=== PATIENT | male | born 1945 | race Caucasian/White ===

== ENCOUNTER 2016-12-14 09:40 | Observation (INO) | payer MEDICARE, OTHER ==
[2016-12-14] MEDS ORDERED: NITROGLYCERIN OINT 1 INCH/GM PACKET TOPICAL STA (10:06)
[2016-12-14] MEDS ORDERED: ASPIRIN 81 MG CHEW PO STA (10:06)
--- NOTE | 2016-12-14 10:08 | ED ---
General Adult HPI - General Chief complaint: Chest Pain Stated complaint: chest pain Time Seen by Provider: 12/14/16 09:50 Source: patient, RN notes reviewed Mode of arrival: wheelchair Limitations: no limitations - History of Present Illness Initial comments: This is a 71-year-old male with past medical history significant for diabetes he states he comes in today because he was having some chest tightness the last few days. Patient states it has been radiating to his neck. Patient states sometimes it seems worse when he takes a deep breath but not always. Patient states a couple days ago he also had some heaviness in the left arm which has subsided. Patient denies any nausea patient denies any diaphoresis. Patient denies a history of hypertension or high cholesterol. Patient denies any smoking history. Patient denies any family history of heart disease. Patient denies any lightheadedness dizziness or near syncopal episode. Patient denies any palpitations. Patient denies abdominal pain patient denies nausea vomiting diarrhea. - Related Data Home Medications Medication Instructions Recorded Confirmed Aspirin 81 mg PO DAILY 12/14/16 12/14/16 Levothyroxine Sodium [Synthroid] 75 mcg PO DAILY 12/14/16 12/14/16 Lisinopril [Prinivil] 5 mg PO DAILY 12/14/16 12/14/16 Simvastatin [Zocor] 20 mg PO HS 12/14/16 12/14/16 metFORMIN HCL [Glucophage] 500 mg PO BID 12/14/16 12/14/16 Allergies Allergy/AdvReac Type Severity Reaction Status Date / Time No Known Allergies Allergy Verified 12/14/16 10:46 Review of Systems ROS Statement: Those systems with pertinent positive or pertinent negative responses have been documented in the HPI. ROS Other: All systems not noted in ROS Statement are negative. Past Medical History Past Medical History: Coronary Artery Disease (CAD), Diabetes Mellitus, Hyperlipidemia, Hypertension, Thyroid Disorder History of Any Multi-Drug Resistant Organisms: None Reported Past Surgical History: No Surgical Hx Reported Past Psychological History: No Psychological Hx Reported Smoking Status: Former smoker Past Alcohol Use History: None Reported Past Drug Use History: None Reported General Exam - General Exam Comments Initial Comments: GENERAL: Patient is well-developed and well-nourished. Patient is nontoxic and well- hydrated and is in mild distress. ENT: Neck is soft and supple. No significant lymphadenopathy is noted. Oropharynx is clear. Moist mucous membranes. Neck has full range of motion without eliciting any pain. EYES: The sclera were anicteric and conjunctiva were pink and moist. Extraocular movements were intact and pupils were equal round and reactive to light. Eyelids were unremarkable. PULMONARY: Unlabored respirations. Good breath sounds bilaterally. No audible rales rhonchi or wheezing was noted. CARDIOVASCULAR: There is a regular rate and rhythm without any murmurs gallops or rubs. ABDOMEN: Soft and nontender with normal bowel sounds. No palpable organomegaly was noted. There is no palpable pulsatile mass. SKIN: Skin is clear with no lesions or rashes and otherwise unremarkable. NEUROLOGIC: Patient is alert and oriented x3. Cranial nerves II through XII are grossly intact. Motor and sensory are also intact. Normal speech, volume and content. Symmetrical smile. MUSCULOSKELETAL: Normal extremities with adequate strength and full range of motion. No lower extremity swelling or edema. No calf tenderness. LYMPHATICS: No significant lymphadenopathy is noted PSYCHIATRIC: Normal psychiatric evaluation. Normal interpersonal interactions appears functionally intact in deals appropriately with others. No signs of depression. No signs of anxiety. Limitations: no limitations Course Vital Signs 12/14/16 12/14/16 12/14/16 09:45 10:20 10:52 Temperature 98.2 F 98.7 F Pulse Rate 78 73 Pulse Rate [ 85 Right Radial] Respiratory 20 18 Rate Blood Pressure 139/67 104/57 O2 Sat by Pulse 98 95 Oximetry Medical Decision Making - Medical Decision Making EKG shows normal sinus rhythm at 77 bpm MD interval is 160 QRS is 120 QT interval 396 QTC is 448. Patient's EKG shows no ST segment elevation or depression or T wave normalities are noted. Patient does show a right bundle branch block. Patient is CAT scan showed no acute normalities. Patient attempted ambulation with 2 nurses and was unsuccessful. Patient could not walk more 3 feet without feeling so she was going to fall over a passout. I spoke with the depression agreed to admit the patient I wrote admitting orders. Chest x-ray shows no acute normalities - Lab Data Result diagrams: 12/14/16 10:16 12/14/16 10:16 Lab Results 12/14/16 12/14/16 12/14/16 Range/Units 10:16 10:16 10:16 WBC 12.9 H (3.8-10.6) k/uL RBC 4.50 (4.30-5.90) m/uL Hgb 14.2 (13.0-17.5) gm/dL Hct 42.3 (39.0-53.0) % MCV 94.1 (80.0-100.0) fL MCH 31.6 (25.0-35.0) pg MCHC 33.6 (31.0-37.0) g/dL RDW 13.6 (11.5-15.5) % Plt Count 236 (150-450) k/uL Neutrophils % 75 % Lymphocytes % 13 % Monocytes % 6 % Eosinophils % 4 % Basophils % 1 % Neutrophils # 9.6 H (1.3-7.7) k/uL Lymphocytes # 1.7 (1.0-4.8) k/uL Monocytes # 0.8 (0-1.0) k/uL Eosinophils # 0.5 (0-0.7) k/uL Basophils # 0.1 (0-0.2) k/uL PT (9.0-12.0) sec INR (<1.2) APTT (22.0-30.0) sec Sodium 138 (137-145) mmol/L Potassium 4.1 (3.5-5.1) mmol/L Chloride 100 (98-107) mmol/L Carbon Dioxide 27 (22-30) mmol/L Anion Gap 11 mmol/L BUN 9 (9-20) mg/dL Creatinine 0.87 (0.66-1.25) mg/dL Est GFR (MDRD) Af Amer >60 (>60 ml/min/1.73 sqM) Est GFR (MDRD) Non-Af >60 (>60 ml/min/1.73 sqM) Glucose 125 H (74-99) mg/dL Calcium 9.1 (8.4-10.2) mg/dL Magnesium 1.8 (1.6-2.3) mg/dL Total Bilirubin 1.4 H (0.2-1.3) mg/dL AST 29 (17-59) U/L ALT 53 (21-72) U/L Alkaline Phosphatase 50 (38-126) U/L Total Creatine Kinase 99 (55-170) U/L CK-MB (CK-2) 0.6 (0.0-2.4) ng/mL CK-MB (CK-2) Rel Index 0.6 Troponin I <0.012 (0.000-0.034) ng/mL Total Protein 6.8 (6.3-8.2) g/dL Albumin 4.0 (3.5-5.0) g/dL 12/14/16 Range/Units 10:16 WBC (3.8-10.6) k/uL RBC (4.30-5.90) m/uL Hgb (13.0-17.5) gm/dL Hct (39.0-53.0) % MCV (80.0-100.0) fL MCH (25.0-35.0) pg MCHC (31.0-37.0) g/dL RDW (11.5-15.5) % Plt Count (150-450) k/uL Neutrophils % % Lymphocytes % % Monocytes % % Eosinophils % % Basophils % % Neutrophils # (1.3-7.7) k/uL Lymphocytes # (1.0-4.8) k/uL Monocytes # (0-1.0) k/uL Eosinophils # (0-0.7) k/uL Basophils # (0-0.2) k/uL PT 11.0 (9.0-12.0) sec INR 1.1 (<1.2) APTT 24.5 (22.0-30.0) sec Sodium (137-145) mmol/L Potassium (3.5-5.1) mmol/L Chloride (98-107) mmol/L Carbon Dioxide (22-30) mmol/L Anion Gap mmol/L BUN (9-20) mg/dL Creatinine (0.66-1.25) mg/dL Est GFR (MDRD) Af Amer (>60 ml/min/1.73 sqM) Est GFR (MDRD) Non-Af (>60 ml/min/1.73 sqM) Glucose (74-99) mg/dL Calcium (8.4-10.2) mg/dL Magnesium (1.6-2.3) mg/dL Total Bilirubin (0.2-1.3) mg/dL AST (17-59) U/L ALT (21-72) U/L Alkaline Phosphatase (38-126) U/L Total Creatine Kinase (55-170) U/L CK-MB (CK-2) (0.0-2.4) ng/mL CK-MB (CK-2) Rel Index Troponin I (0.000-0.034) ng/mL Total Protein (6.3-8.2) g/dL Albumin (3.5-5.0) g/dL Disposition Clinical Impression: Unstable angina pectoris Disposition: ADMITTED IP TO THIS HOSP Referrals: Cinthia Estrada DO [Primary Care Provider] - 1-2 days Time of Disposition: 11:32
--- NOTE | 2016-12-14 10:32 | XR ---
EXAMINATION TYPE: XR chest 2V DATE OF EXAM: 12/14/2016 COMPARISON: NONE HISTORY: Chest pain. TECHNIQUE: Frontal and lateral views of the chest are obtained. FINDINGS: There is no focal air space opacity, pleural effusion, or pneumothorax seen. The cardiac silhouette size is within normal limits. The osseous structures are intact. Minimal degenerative ch anges are seen of the thoracic spine. IMPRESSION: No acute cardiopulmonary process.
[2016-12-14 10:34] LABS: Basophils # (A) 0.1 k/uL (0-0.2); Basophils % (A) 1 %; CH 32.1; CHCM 34.3; Eosinophils # (A) 0.5 k/uL (0-0.7); Eosinophils % (A) 4 %; HCT 42.3 % (39.0-53.0); HGB 14.2 gm/dL (13.0-17.5); Luc # (Auto) 0.21; Luc % (Auto) 2; Lymphocytes # (A) 1.7 k/uL (1.0-4.8); Lymphocytes % (A) 13 %; MCH 31.6 pg (25.0-35.0); MCHC 33.6 g/dL (31.0-37.0); MCV 94.1 fL (80.0-100.0); Mean Platelet Volume 7.7; Monocytes # (A) 0.8 k/uL (0-1.0); Monocytes % (A) 6 %; Neutrophils # (A) 9.6 k/uL (1.3-7.7); Neutrophils % (A) 75 %; RDW 13.6 % (11.5-15.5); WBC 12.9 k/uL (3.8-10.6); WBC (Perox) 12.87
[2016-12-14 10:47] LABS: INR 1.1 (<1.2); Partial Thromboplastin Time 24.5 sec (22.0-30.0)
[2016-12-14 10:48] LABS: ALT 53 U/L (21-72); AST 29 U/L (17-59); Alkaline Phosphatase 50 U/L (38-126); Anion Gap 11 mmol/L; Blood Urea Nitrogen 9 mg/dL (9-20); Calcium 9.1 mg/dL (8.4-10.2); Carbon Dioxide 27 mmol/L (22-30); Chloride 100 mmol/L (98-107); Glucose 125 mg/dL (74-99); Magnesium 1.8 mg/dL (1.6-2.3); Non-African American GFR(MDRD) >60 (>60 ml/min/1.73 sqM); Potassium 4.1 mmol/L (3.5-5.1); Sodium 138 mmol/L (137-145); Total Bilirubin 1.4 mg/dL (0.2-1.3); Total Protein 6.8 g/dL (6.3-8.2)
[2016-12-14 11:02] LABS: Creatine Kinase 99 U/L (55-170)
[2016-12-14 11:14] LABS: Creatine Kinase MB 0.6 ng/mL (0.0-2.4); Troponin I <0.012 ng/mL (0.000-0.034)
[2016-12-14] MEDS ORDERED: SODIUM CHLORIDE 0.9% 1,000 ML IV ONE (11:24)
[2016-12-14] MEDS ORDERED: HEPARIN SODIUM,PORCINE 5,000 UNIT/ML 1 ML VIAL IV ONE (11:32)
[2016-12-14] MEDS ORDERED: NITROGLYCERIN SL TABS 0.4 MG TAB SUBLINGUAL PRN (11:33)
[2016-12-14] MEDS: HEPARIN SODIUM,PORCINE/D5W PMX 25,000 UNIT in DEXTROSE/WATER 1 500ML.BAG IV SCH (11:49)
[2016-12-14 14:36] VITALS: BMI 30.8
[2016-12-14] MEDS ORDERED: methylPREDNISolone SOD SUCCI 125 MG/2 ML VIAL IV STA (15:02)
--- NOTE | 2016-12-14 16:09 | P.HPIM ---
History of Present Illness H&P Date: 12/14/16 This is a 71-year-old gentleman with history of diabetes comes in to the hospital with complaints of right-sided chest pain, intermittent in nature for the last 3-4 days. States that the deep breathing makes it worse does not recall if the nitroglycerin has helped his pain in the emergency room EKG in the ER shows a right axis deviation with a right bundle branch pattern no ST elevation is noted Initial troponin is negative Patient does not have a history of smoking no family history of cardiac disease is reported Patient is able to exercise walk about 2-1/2 miles without any progressive worsening of dyspnea or chest pain At the time of my evaluation states that he is able to reproduce the pain with deep breathing. Review of Systems All systems: negative (Noted in HPI) Past Medical History Past Medical History: Coronary Artery Disease (CAD), Diabetes Mellitus, Hyperlipidemia, Hypertension, Thyroid Disorder Additional Past Medical History / Comment(s): tendonitis in the L thumb to wrist , broke R wrist History of Any Multi-Drug Resistant Organisms: None Reported Past Surgical History: No Surgical Hx Reported Past Anesthesia/Blood Transfusion Reactions: No Reported Reaction Past Psychological History: No Psychological Hx Reported Smoking Status: Former smoker Past Alcohol Use History: None Reported Past Drug Use History: None Reported - Past Family History Mother Family Medical History: Diabetes Mellitus Additional Family Medical History / Comment(s): of CHF- thickening of the blood Father Family Medical History: Renal Disease Additional Family Medical History / Comment(s): of uremias poisoning, was a heavy drinker Medications and Allergies Home Medications Medication Instructions Recorded Confirmed Type Aspirin 81 mg PO DAILY 12/14/16 12/14/16 History Levothyroxine Sodium [Synthroid] 75 mcg PO DAILY 12/14/16 12/14/16 History Lisinopril [Prinivil] 5 mg PO DAILY 12/14/16 12/14/16 History Simvastatin [Zocor] 20 mg PO HS 12/14/16 12/14/16 History metFORMIN HCL [Glucophage] 500 mg PO BID 12/14/16 12/14/16 History Allergies Allergy/AdvReac Type Severity Reaction Status Date / Time No Known Allergies Allergy Verified 12/14/16 10:46 Physical Exam Vitals: Vital Signs Temp Pulse Pulse Pulse Resp BP BP 12/14/16 13:22 98.3 F 73 16 142/71 12/14/16 11:51 98.2 F 78 18 116/57 12/14/16 10:52 98.7 F 73 18 104/57 12/14/16 10:20 85 12/14/16 09:45 98.2 F 78 20 139/67 Pulse Ox 12/14/16 13:22 93 L 12/14/16 11:51 96 12/14/16 10:52 95 12/14/16 10:20 12/14/16 09:45 98 Intake and Output 12/14/16 12/14/16 12/14/16 06:59 14:59 22:59 Other: Weight 97.522 kg Patient Weight 12/15/16 06:59 Weight 97.522 kg Physical exam Gen. appearance oriented 3 in no distress Neck is supple no JVD Lungs good air entry clear to auscultation no rhonchi or wheezing Heart S1-S2 heard regular rate and rhythm no murmurs appreciated Abdomen is soft nontender no organomegaly bowel sounds are intact Neurologically cranial nerves II-12 grossly intact no focal motor or sensory deficits noted Skin no abnormalities appreciated Results CBC & Chem 7: 12/14/16 10:16 12/14/16 10:16 Labs: Abnormal Lab Results - Last 24 Hours (Table) 12/14/16 12/14/16 Range/Units 10:16 10:16 WBC 12.9 H (3.8-10.6) k/uL Neutrophils # 9.6 H (1.3-7.7) k/uL Glucose 125 H (74-99) mg/dL Total Bilirubin 1.4 H (0.2-1.3) mg/dL Thrombosis Risk Factor Assmnt - Choose All That Apply Each Factor Represents 1 point: Obesity (BMI >25) Each Risk Factor Represents 2 Points: Age 61-74 years Thrombosis Risk Factor Assessment Total Risk Factor Score: 3 Thrombosis Risk Factor Assessment Level: Moderate Risk Assessment and Plan Plan: Atypical chest pain appears to be pleuritic #2 diabetes mellitus type 2 #3 dyslipidemia Plan We'll give the patient 1 dose of Solu-Medrol Glucose levels be controlled which short acting insulin We'll obtain HbA1c Would likely benefit from a stress test with the EKG changes and risk factors including diabetes mellitus and age We'll have cardiology evaluate the patient
[2016-12-14 17:24] LABS: Glucose,Whole Blood 104 mg/dL (75-99)
[2016-12-14 17:44] LABS: Creatine Kinase 85 U/L (55-170)
[2016-12-14] MEDS: INSULIN LISPRO (humaLOG) 300 UNIT/3 ML VIAL SQ SCH ×2 (17:56→20:41)
[2016-12-14 17:57] LABS: Creatine Kinase MB 0.5 ng/mL (0.0-2.4); Troponin I <0.012 ng/mL (0.000-0.034)
[2016-12-14] MEDS ORDERED: HEPARIN SODIUM,PORCINE 5,000 UNIT/ML 1 ML VIAL IV PRN (19:12)
[2016-12-14 19:51] LABS: Hemoglobin A1C 7.1 % (4.2-6.1)
[2016-12-14] MEDS: NITROGLYCERIN OINT 1 INCH/GM PACKET TOPICAL SCH ×2 (19:54→20:36)
[2016-12-14 20:34] LABS: Glucose,Whole Blood 231 mg/dL (75-99)
[2016-12-14] MEDS ORDERED: ATORVASTATIN 10 MG TAB PO SCH (21:00)
[2016-12-14 22:57] LABS: Creatine Kinase 75 U/L (55-170)
[2016-12-14 23:06] LABS: Glucose,Whole Blood 242 mg/dL (75-99)
[2016-12-14 23:10] LABS: Creatine Kinase MB 0.4 ng/mL (0.0-2.4); Troponin I <0.012 ng/mL (0.000-0.034)
[2016-12-15 03:11] LABS: Cholesterol 106 mg/dL (<200); HDL Cholesterol 50 mg/dL (40-60)
[2016-12-15] MEDS: HEPARIN SODIUM,PORCINE/D5W PMX 25,000 UNIT in DEXTROSE/WATER 1 500ML.BAG IV SCH (05:53)
[2016-12-15] MEDS: NITROGLYCERIN OINT 1 INCH/GM PACKET TOPICAL SCH ×3 (05:53→17:32)
[2016-12-15] MEDS ORDERED: LEVOTHYROXINE 75 MCG TAB PO SCH (06:30)
[2016-12-15 07:07] LABS: Glucose,Whole Blood 216 mg/dL (75-99)
[2016-12-15 08:42] VITALS: RESP 18
[2016-12-15] MEDS ORDERED: LISINOPRIL 5 MG TAB PO SCH (09:00)
[2016-12-15] MEDS ORDERED: ASPIRIN 325 MG TAB PO SCH (09:00)
[2016-12-15] MEDS: INSULIN LISPRO (humaLOG) 300 UNIT/3 ML VIAL SQ SCH ×3 (10:31→17:39)
[2016-12-15] MEDS ORDERED: ALPRAZolam 0.5 MG TAB PO PRN (10:40)
[2016-12-15] MEDS ORDERED: ATORVASTATIN 80 MG TAB PO STA (10:40)
[2016-12-15] MEDS ORDERED: ASPIRIN 325 MG TAB PO STA (10:40)
[2016-12-15] MEDS ORDERED: SODIUM CHLORIDE 0.9% 1,000 ML in EMPTY BAG 1 BAG IV ONE (10:40)
[2016-12-15] MEDS ORDERED: ALPRAZolam 0.25 MG TAB PO PRN (10:40)
[2016-12-15] MEDS ORDERED: NITROGLYCERIN SL TABS 0.4 MG TAB SUBLINGUAL PRN (10:40)
[2016-12-15] MEDS ORDERED: SODIUM CHLORIDE 0.9% 1,000 ML IV ONE (12:01)
--- NOTE | 2016-12-15 12:12 | ECHOF ---
Referral Reason:chest pain MEASUREMENTS -------- HEIGHT: 177.8 cm WEIGHT: 98.0 kg BP: 100/55 RVIDd: 3.2 cm (< 3.3) IVSd: 1.0 cm (0.6 - 1.1) LVIDd: 3.9 cm (3.9 - 5.3) LVPWd: 1.0 cm (0.6 - 1.1) IVSs: 1.5 cm LVIDs: 2.5 cm LVPWs: 1.5 cm LA Diam: 3.7 cm (2.7 - 3.8) LAESV Index (A-L): 20.87 ml/m Ao Diam: 3.9 cm (2.0 - 3.7) AV Cusp: 1.9 cm (1.5 - 2.6) MV EXCURSION: 10.738 mm (> 18.000) MV EF SLOPE: 83 mm/s (70 - 150) EPSS: 0.5 cm MV E Capo: 0.59 m/s MV DecT: 251 ms MV A Capo: 0.77 m/s MV E/A Ratio: 0.76 AR PHT: 627 ms RAP: 5.00 mmHg RVSP: 23.57 mmHg FINDINGS -------- Sinus rhythm. This was a technically good study. The left ventricular size is normal. Left ventricular wall thickness is normal. Overall left ventricular systolic function is normal with, an EF between 60 - 65 %. The right ventricle is normal in size. Normal LA size by volume 22+/-6 ml/m2. The right atrium is normal in size. There is mild aortic valve sclerosis. There is mild aortic regurgitation. There is trace mitral regurgitation. Mild tricuspid regurgitation present. Right ventricular systolic pressure is normal at < 35 mmHg. The aortic root is dilated measuring 3.9cm. Normal inferior vena cava with normal inspiratory collapse consistent with estimated right atrial pressure of 5 mmHg. There is no pericardial effusion. CONCLUSIONS -------- 1. Sinus rhythm. 2. There is mild aortic regurgitation. 3. There is trace mitral regurgitation. 4. Mild tricuspid regurgitation present. 5. Right ventricular systolic pressure is normal at < 35 mmHg. 6. The aortic root is dilated measuring 3.9cm. 7. Normal inferior vena cava with normal inspiratory collapse consistent with estimated right atrial pressure of 5 mmHg. 8. There is no pericardial effusion. 9. This was a technically good study. 10. The left ventricular size is normal. 11. Left ventricular wall thickness is normal. 12. Overall left ventricular systolic function is normal with, an EF between 60 - 65 %. 13. The right ventricle is normal in size. 14. Normal LA size by volume 22+/-6 ml/m2. 15. The right atrium is normal in size. 16. There is mild aortic valve sclerosis. DIRECTOR OF BUSINESS APPLICATIONS: Mariella Graff RDCS
[2016-12-15] MEDS ORDERED: fentaNYL (PF) 50 MCG/ML 2 ML AMP IVP ONE (12:20)
[2016-12-15] MEDS: MIDAZOLAM 2 MG/2 ML VIAL IVP ONE ×2 (12:21→12:29)
[2016-12-15] MEDS ORDERED: LIDOCAINE 2% INJ 20 MG/ML SQ ONE (12:29)
[2016-12-15] MEDS ORDERED: IOHEXOL 350 MG/ML 100 ML BOTTLE INJ ONE (12:52)
[2016-12-15] MEDS ORDERED: RX INFO: IV CONTRAST WAS GIVEN 1 EACH MISC MISCELLANE PRN (12:56)
--- NOTE | 2016-12-15 12:56 | P.OP ---
Preoperative Diagnosis: Postoperative Diagnosis: Procedure(s) Performed: Implants: Indications for Procedure: Operative Findings: Description of Procedure: Cardiac catheterization report. HPI patient was admitted with the symptoms of new onset of intermittent chest discomfort for last 3 days. Discomfort was associated with symptoms of shortness of breath and frequently occur with activities and at times without activity. His EKGs and cardiac enzymes were normal of the symptoms suggestive for new onset of unstable angina syndrome patient was recommended to have a cardiac catheterization for definitive diagnosis. Procedure and the risks were fully explained to the patient. Procedure right groin was prepped and draped in the usual manner and the skin was infiltrated with 2% Xylocaine. Right femoral artery was entered using Seldinger technique and #6-Swiss sheath was placed in. Elective coronary angiography was then performed in multiple projections and the left ventricular pressures were obtained patient tolerated the procedure well. Sheath was removed and good hemostasis was achieved with the use of Angio-Seal. Hemodynamics. Left ventricle and diastolic pressure was 16-18 mmHg prior to angiography. No gradient is noted across the aortic valve. Coronary angiography. Left main coronary artery is normal and patent. LAD is a good caliber blood vessels and U/A good-sized diagonal branch left anterior descending and the diagonal branch are normal. Circumflex coronary artery is a good caliber blood vessels and gives rise to a good size obtuse marginal branch circumflex coronary artery and its branches are normal Right coronary artery gives rise to the posterior descending artery and it is normal Impression This study reveals normal coronary arteries. Left ventricular end-diastolic pressure is mildly elevated. Continue risk factor modification
[2016-12-15] MEDS ORDERED: SODIUM CHLORIDE 0.9% 1,000 ML IV SCH (13:00)
[2016-12-15] MEDS ORDERED: ATORVASTATIN 40 MG TAB PO SCH (13:15)
[2016-12-15 13:36] LABS: Glucose,Whole Blood 176 mg/dL (75-99)
--- NOTE | 2016-12-15 14:08 | P.CRDCN ---
History of Present Illness Consult date: 12/15/16 History of present illness: 71-year-old male who presents to the emergency department with complaints of chest tightness, shortness of breath and dizziness has been going on since Sunday. He states this started off mild and has been getting progressively worse. Upon arrival to the ED the pain is described as tight to the left chest patient uses Mayen sign to indicate the pain. He denies radiation of the pain into the neck, jaw, arm or back. The pain persisted in the emergency department until a nitro patch was applied. He states he has not had a pain like this ever in the past. He has never seen a technical project coordinator. He had a stress test with his primary care doctor approximately 3-4 years ago. He has a significant history for diabetes mellitus, hypertension, hyperlipidemia and hypothyroidism. His blood pressure is maintained with lisinopril 5 mg. EKG from the emergency department indicates a right bundle branch block with mild ST elevation noted in precordial leads. No old EKG for comparison. Chest x- ray is negative for acute cardiopulmonary process. Review of Systems REVIEW OF SYSTEMS: Patient denies any chest discomfort. No shortness of breath. No diaphoresis. He denies headache, dizziness, blurred vision, double vision. No dyspnea on exertion. Patient denies any stomach discomfort. No nausea, vomiting. No hematochezia. No hematemesis. Denies any black stools or blood in his stools. No syncope. No palpitations. No cough. No recent fever or chills. Denies dysuria or hematuria. No muscle weakness or numbness. Past Medical History Past Medical History: Coronary Artery Disease (CAD), Diabetes Mellitus, Hyperlipidemia, Hypertension, Thyroid Disorder Additional Past Medical History / Comment(s): tendonitis in the L thumb to wrist , broke R wrist History of Any Multi-Drug Resistant Organisms: None Reported Past Surgical History: No Surgical Hx Reported Past Anesthesia/Blood Transfusion Reactions: No Reported Reaction Past Psychological History: No Psychological Hx Reported Smoking Status: Former smoker Past Alcohol Use History: None Reported Past Drug Use History: None Reported - Past Family History Mother Family Medical History: Diabetes Mellitus Additional Family Medical History / Comment(s): of CHF- thickening of the blood Father Family Medical History: Renal Disease Additional Family Medical History / Comment(s): of uremias poisoning, was a heavy drinker Medications and Allergies Home Medications Medication Instructions Recorded Confirmed Type Aspirin 81 mg PO DAILY 12/14/16 12/14/16 History Levothyroxine Sodium [Synthroid] 75 mcg PO DAILY 12/14/16 12/14/16 History Lisinopril [Prinivil] 5 mg PO DAILY 12/14/16 12/14/16 History metFORMIN HCL [Glucophage] 500 mg PO BID 12/14/16 12/14/16 History Allergies Allergy/AdvReac Type Severity Reaction Status Date / Time No Known Allergies Allergy Verified 12/14/16 10:46 Physical Exam Vitals: Vital Signs Temp Pulse Pulse Pulse Resp BP BP 12/15/16 04:00 97.7 F 69 16 98/51 12/15/16 03:22 80 16 12/14/16 23:50 16 12/14/16 23:17 98.2 F 80 16 99/53 12/14/16 19:52 99.2 F 62 16 102/47 12/14/16 19:48 16 12/14/16 16:00 98.1 F 77 16 130/57 12/14/16 13:22 98.3 F 73 16 142/71 12/14/16 11:51 98.2 F 78 18 116/57 12/14/16 10:52 98.7 F 73 18 104/57 12/14/16 10:20 85 12/14/16 09:45 98.2 F 78 20 139/67 Pulse Ox 12/15/16 04:00 95 12/15/16 03:22 12/14/16 23:50 12/14/16 23:17 90 L 12/14/16 19:52 93 L 12/14/16 19:48 12/14/16 16:00 93 L 12/14/16 13:22 93 L 12/14/16 11:51 96 12/14/16 10:52 95 12/14/16 10:20 12/14/16 09:45 98 Intake and Output 12/14/16 12/15/16 12/15/16 22:59 06:59 14:59 Intake Total 396.667 259.261 Balance 396.667 259.261 Intake: Intake, IV Titration 160.667 259.261 Amount Heparin Sodium,Porcine/ 160.667 259.261 D5w Pmx 25,000 unit In Dextrose/Water 1 500ml. bag @ 10.256 UNITS/KG/HR 20 mls/hr IV .Q24H [facility] Rx #:[id number] Oral 236 Other: Voiding Method Toilet Toilet GENERAL: This is a 71-year-old male in no apparent distress at the time of my examination. HEENT: Head is atraumatic, normocephalic. Pupils are equal, round. Sclerae anicteric. Conjunctivae are clear. Mucous membranes of the mouth are moist. Neck is supple. There is no jugular venous distention. No carotid bruit is heard. LUNGS: Clear to auscultation and precussion. No chest wall tenderness is noted on palpation or with deep breathing. HEART: Regular rate and rhythm without murmurs, rubs or gallops. S1 and S2 heard. ABDOMEN: Soft, nontender. Bowel sounds are heard. No organomegaly noted. EXTREMITIES: 2+ peripheral pulses with no evidence of peripheral edema and no calf tenderness noted]. NEUROLOGIC: Patient is awake, alert and oriented x3. Results 12/14/16 10:16 12/14/16 10:16 Cardiac Enzymes 12/14/16 12/14/16 12/14/16 Range/Units 10:16 10:16 17:02 AST 29 (17-59) U/L CK-MB (CK-2) 0.6 0.5 (0.0-2.4) ng/mL Troponin I <0.012 <0.012 (0.000-0.034) ng/mL 12/14/16 Range/Units 22:24 AST (17-59) U/L CK-MB (CK-2) 0.4 (0.0-2.4) ng/mL Troponin I <0.012 (0.000-0.034) ng/mL Coagulation 12/14/16 12/14/16 12/15/16 Range/Units 10:16 17:02 01:59 PT 11.0 (9.0-12.0) sec APTT 24.5 32.0 H 53.3 H (22.0-30.0) sec Lipids 12/15/16 Range/Units 01:59 Triglycerides 50 (<150) mg/dL Cholesterol 106 (<200) mg/dL HDL Cholesterol 50 (40-60) mg/dL CBC 12/14/16 Range/Units 10:16 WBC 12.9 H (3.8-10.6) k/uL RBC 4.50 (4.30-5.90) m/uL Hgb 14.2 (13.0-17.5) gm/dL Hct 42.3 (39.0-53.0) % Plt Count 236 (150-450) k/uL Comprehensive Metabolic Panel 12/14/16 Range/Units 10:16 Sodium 138 (137-145) mmol/L Potassium 4.1 (3.5-5.1) mmol/L Chloride 100 (98-107) mmol/L Carbon Dioxide 27 (22-30) mmol/L BUN 9 (9-20) mg/dL Creatinine 0.87 (0.66-1.25) mg/dL Glucose 125 H (74-99) mg/dL Calcium 9.1 (8.4-10.2) mg/dL AST 29 (17-59) U/L ALT 53 (21-72) U/L Alkaline Phosphatase 50 (38-126) U/L Total Protein 6.8 (6.3-8.2) g/dL Albumin 4.0 (3.5-5.0) g/dL Current Medications Generic Name Dose Route Start Last Admin Trade Name Freq PRN Reason Stop Dose Admin Aspirin 325 mg 12/15/16 09:[address] [facility] Atorvastatin Calcium 10 mg 12/14/16 21:00 12/14/16 19:53 Lipitor PO 10 mg HS [facility] Administration Heparin Sodium (Porcine) 0 unit 12/14/16 19:12 12/14/16 19:52 Heparin IV 4,000 unit PER PROTOCOL PRN Administration Low PTT Protocol Heparin Sodium/Dextrose 25,000 500 mls @ 20 mls/hr 12/14/16 11:45 12/15/16 05 :53 unit/ IV Solution IV 13.25 units/kg/hr .Q24H [facility] 25.84 mls/hr Protocol Administration 10.256 UNITS/KG/HR Insulin Human Lispro 0 unit 12/14/16 17:30 12/14/16 20:41 Humalog SQ 3 unit ACHS [facility] Administration Protocol Levothyroxine Sodium 75 mcg 12/15/16 06:30 12/15/16 05:53 Synthroid PO 75 mcg DAILY@0630 [facility] Administration Lisinopril 5 mg 12/15/16 09:00 Zestril PO DAILY [facility] Nitroglycerin 1 inch 12/14/16 18:00 12/15/16 05:53 Nitro-Bid Oint TOPICAL 1 inch Q6HR [facility] Administration Nitroglycerin 0.4 mg 12/14/16 11:33 Nitrostat SUBLINGUAL Q5M PRN Chest Pain Intake and Output 12/14/16 12/15/16 12/15/16 22:59 06:59 14:59 Intake Total 396.667 259.261 Balance 396.667 259.261 Intake: Intake, IV Titration 160.667 259.261 Amount Heparin Sodium,Porcine/ 160.667 259.261 D5w Pmx 25,000 unit In Dextrose/Water 1 500ml. bag @ 10.256 UNITS/KG/HR 20 mls/hr IV .Q24H [facility] Rx #:[id number] Oral 236 Other: Voiding Method Toilet Toilet 12/14/16 10:16 12/14/16 10:16 Assessment and Plan Plan: ASSESSMENT 1. Chest pain, atypical presentation with significant risk factors 2. Diabetes mellitus type 2 3. Dyslipidemia PLAN The patient presents with atypical-type symptoms that were relieved by nitroglycerin. He has some transient EKG abnormalities with no old EKG for comparison. Therefore we will proceed with a cardiac catheterization to assess her coronary artery stenosis. I have discussed the risks, benefits and alternative therapies for the above-mentioned procedure and for both sedation/ analgesia as well as necessary blood product administration, if indicated, as they pertain to this patient. The patient has indicated understanding and acceptance of the risks and procedures discussed. If the catheterization is normal the patient can be discharged home. He can follow-up with Dr. Levy as an outpatient. Nurse Practitioner note has been reviewed, I agree with a documented findings and plan of care. Patient was seen and examined.
[2016-12-15 16:20] VITALS: BP 130/65; PULSE 87; TEMP 97.9
--- NOTE | 2016-12-15 17:05 | P.DS ---
Providers Date of admission: 12/14/16 11:33 Attending physician: Omer Solares MD Consults: 12/14/16 11:33 Consult Physician Urgent Consulting Provider: [facility] Consult Reason/Comments: Unstable angina Do you want consulting provider notified?: Yes Primary care physician: Cinthia Estrada [place] [facility] Course: 71-year-old man came into hospital with complaints of right-sided chest pain, patient underwent stress test which is negative. Patient was ruled out acute coronary syndromes and unstable angina. Etiology of chest pain is not clear at this time patient's d-dimer is negative. No pneumonia on the chest x-ray. Patient most probably has musculoskeletal chest pain patient still has mild chest pain at this time. Patient will be discharged today in stable medical condition to home. PHYSICAL EXAMINATION: GENERAL: The patient is alert and oriented x3, not in any acute distress. Well developed, well nourished. HEENT: Pupils are round and equally reacting to light. EOMI. No scleral icterus. No conjunctival pallor. Normocephalic, atraumatic. No pharyngeal erythema. No thyromegaly. CARDIOVASCULAR: S1 and S2 present. No murmurs, rubs, or gallops. PULMONARY: Chest is clear to auscultation, no wheezing or crackles. ABDOMEN: Soft, nontender, nondistended, normoactive bowel sounds. No palpable organomegaly. MUSCULOSKELETAL: No joint swelling or deformity. EXTREMITIES: No cyanosis, clubbing, or pedal edema. NEUROLOGICAL: Gross neurological examination did not reveal any focal deficits. SKIN: No rashes. Atypical chest pain appears to be pleuritic, negative d-dimer and no pneumonia. #2 diabetes mellitus type 2 #3 dyslipidemia Plan - Discharge Summary New Discharge Prescriptions: Continue Aspirin 81 mg PO DAILY metFORMIN HCL [Glucophage] 500 mg PO BID Lisinopril [Prinivil] 5 mg PO DAILY Levothyroxine Sodium [Synthroid] 75 mcg PO DAILY Discontinued Simvastatin [Zocor] 20 mg PO HS Discharge Medication List Aspirin 81 mg PO DAILY 12/14/16 [History] Levothyroxine Sodium [Synthroid] 75 mcg PO DAILY 12/14/16 [History] Lisinopril [Prinivil] 5 mg PO DAILY 12/14/16 [History] metFORMIN HCL [Glucophage] 500 mg PO BID 12/14/16 [History] Follow up Appointment(s)/Referral(s): Cinthia Estrada DO [Primary Care Provider] - 1 Week Ruby Levy MD [STAFF PHYSICIAN] - 1 Week (Appointment made for at 9:00am for groing check.) Patient Instructions/Handouts: Chest Pain (GEN), Heart Catheterization (DC) Activity/Diet/Wound Care/Special Instructions: low fat/low salt diet activity limitations post cath; avoid vigorous activities for 3 days; running, kicking, jumping avoid stairs as much as possible do not submerge puncture site in water for 3 days gently cleanse around area, no vigorous scrubbing is needed if coughing, sneezing, laughing, straining to have a bowel movement apply gentle pressure to site.
[2016-12-15 17:08] LABS: Glucose,Whole Blood 178 mg/dL (75-99)
== END 2016-12-15 18:05 | disposition home or self-care (01) ==
LOC: EC 09:40 → 3OBS 11:33
PROVIDERS: ADMIT Internal Medicine; ATTEND Internal Medicine
DX: R07.89 Other chest pain (principal); E11.9 Type 2 diabetes mellitus without complications; E78.5 Hyperlipidemia, unspecified; M54.2 Cervicalgia; Z79.82 Long term (current) use of aspirin; Z79.899 Other long term (current) drug therapy; Z79.84 Long term (current) use of oral hypoglycemic drugs; Z87.891 Personal history of nicotine dependence; I25.10 Atherosclerotic heart disease of native coronary artery without angina pectoris; I10 Essential (primary) hypertension; E03.9 Hypothyroidism, unspecified; I45.10 Unspecified right bundle-branch block; Z82.49 Family history of ischemic heart disease and other diseases of the circulatory system; E66.9 Obesity, unspecified; Z68.30 Body mass index [BMI] 30.0-30.9, adult; R06.02 Shortness of breath; R42 Dizziness and giddiness
CPT/HCPCS: 96365; 96366; 96375; 96376; 99285; 36415; 93005; 93306; 93458; 85379; 80061; 80053; 83036; 82550; 82553; 83735; 84484; 85025; 85610; 85730 ×2; 71020; G0378 ×2; C1760; C1894; C1769; J2001; J2250; J1644 ×3; J2930; Q9967; J3010